=== PATIENT | male | born 1995 | race Hispanic/Latino ===

== ENCOUNTER 2019-03-12 18:17 | Emergency (ER) | payer OTHER ==
[2019-03-12] MEDS ORDERED: IBUPROFEN 800 MG TAB ONE (18:28)
[2019-03-12 18:57] LABS: RAPID GROUP A STREP NEGATIVE (NEGATIVE)
[2019-03-12] MEDS ORDERED: ACETAMINOPHEN EXTRA STRENGTH 500 MG TABLET ONE (19:11)
== END 2019-03-12 20:10 | disposition home or self-care (01) ==
LOC: EDH 18:17
DX: J06.9 Acute upper respiratory infection, unspecified (principal)
CPT/HCPCS: 71046; 87804; 87880

== ENCOUNTER 2019-06-22 02:25 | Emergency (ER) | payer OTHER ==
[2019-06-22] MEDS ORDERED: CLINDAMYCIN HCL 150 MG CAP ONE (02:41)
[2019-06-22] MEDS ORDERED: LIDOCAINE HCL 2% VISCOUS 15 ML UDCUP ONE (02:41)
[2019-06-22] MEDS ORDERED: MAG HYDROX/AL HYDROX/SIMETH ES 30 ML SUSP UDCUP ONE (02:41)
== END 2019-06-22 02:56 | disposition home or self-care (01) ==
LOC: EDH 02:25
DX: S01.512A Laceration without foreign body of oral cavity, initial encounter (principal); R11.2 Nausea with vomiting, unspecified; W45.8XXA Other foreign body or object entering through skin, initial encounter; Y93.89 Activity, other specified; Y92.89 Other specified places as the place of occurrence of the external cause; Y99.8 Other external cause status

== ENCOUNTER 2020-02-04 04:16 | Emergency (ER) | payer OTHER | END 2020-02-04 06:55 | disposition home or self-care (01) | LOC: EDH 04:16 | DX: R20.2 Paresthesia of skin (principal) | CPT/HCPCS: 93005 ==

== ENCOUNTER 2020-02-11 22:45 | Emergency (ER) | payer OTHER ==
[2020-02-11 23:35] LABS: BASOPHILS % (AUTO) 0.4 % (0.0-5.0); EOSINOPHILS % (AUTO) 3.6 % (0.0-8.0); HEMATOCRIT 42.9 % (42-54); LYMPHOCYTES % (AUTO) 29.8 % (21.0-51.0); MEAN CORPUSCULAR HEMOGLOBIN 30.6 pg (27.0-33.0); MEAN CORPUSCULAR HGB CONC 35.2 g/dL (32.0-36.0); MONOCYTES % (AUTO) 10.9 % (3.0-13.0); PLATELET COUNT (AUTO) 270 K/uL (130-400); RED BLOOD CELL COUNT(AUTO) 4.93 MIL/uL (4.50-6.20); RED CELL DISTRIBUTION WIDTH 12.2 % (11.0-15.5); WHITE BLOOD COUNT (AUTO) 9.5 K/uL (4.8-10.8)
[2020-02-11 23:46] LABS: CREATININE 1.1 mg/dL (0.5-1.5); POTASSIUM 3.7 mmol/L (3.5-5.1)
[2020-02-11 23:51] LABS: ALBUMIN 4.1 g/dL (3.5-5.0); BILIRUBIN,TOTAL 0.9 mg/dL (0.2-1.0); TOTAL PROTEIN, SERUM 7.7 g/dL (6.0-8.3)
[2020-02-11 23:54] LABS: INR 0.96 (0.85-1.15); PARTIAL THROMBOPLASTIN TIME 25.8 SEC (26.3-35.5); PROTHROMBIN TIME 10.4 SEC (9.6-11.6)
== END 2020-02-12 00:25 | disposition home or self-care (01) ==
LOC: EDH 22:45
DX: K92.2 Gastrointestinal hemorrhage, unspecified (principal); K52.9 Noninfective gastroenteritis and colitis, unspecified
CPT/HCPCS: 36415; 80053; 82270; 85025; 85610; 85730; 86900; 86901

== ENCOUNTER 2020-03-22 23:04 | Emergency (ER) | payer OTHER ==
[2020-03-22] MEDS ORDERED: LIDOCAINE HCL 2% VISCOUS 15 ML UDCUP ONE (23:47)
[2020-03-22] MEDS ORDERED: FAMOTIDINE 20MG TAB 20 MG TAB ONE (23:48)
[2020-03-22] MEDS ORDERED: PANTOPRAZOLE SODIUM 40 MG TABLET.DR ONE (23:48)
[2020-03-22] MEDS ORDERED: MAG HYDROX/AL HYDROX/SIMETH ES 30 ML SUSP UDCUP ONE (23:48)
[2020-03-23] MEDS ORDERED: ONDANSETRON ODT 4 MG TAB ONE (00:16)
== END 2020-03-23 00:25 | disposition home or self-care (01) ==
LOC: EDH 23:04
DX: K29.00 Acute gastritis without bleeding (principal)

== ENCOUNTER 2020-03-25 22:19 | Emergency (ER) | payer OTHER | END 2020-03-25 23:31 | disposition home or self-care (01) | LOC: EDH 22:19 | DX: K29.60 Other gastritis without bleeding (principal); R11.2 Nausea with vomiting, unspecified | CPT/HCPCS: 99281 ==